=== PATIENT | male | born 1975 | race Caucasian/White ===

== ENCOUNTER 2018-02-22 02:10 | Emergency (ER) | payer OTHER ==
[~2018-02-22] VITALS: Ht 185.4 cm; Wt 127.3 kg
[~2018-02-22 02:10] MED LIST: CIPRO 500MG TA500 MG PO; FLOMAX0.4 MG PO; NO HOME MEDICATIONS; PERCOCET 325 MG1 TA2 PO; PHENERGAN 25 TA25 MG PO; PHENERGAN25 MG RC
[2018-02-22 02:16] VITALS: BP 192/90; TEMP 99
[2018-02-22] MEDS ORDERED: HCTZ12.5TAB (02:22)
[2018-02-22] MEDS ORDERED: ALEVE 220MG220 MG PO (02:22)
[2018-02-22] MEDS ORDERED: EXCEDRIN1 TAB PO (02:23)
[2018-02-22] MEDS ORDERED: ADVIL200 MG PO (02:24)
[2018-02-22] MEDS ORDERED: AMOXICILLIN 50500 MG PO (02:43)
[2018-02-22] MEDS ORDERED: NORCO 325 MG-7.1 TAB PO (02:43)
[2018-02-22 02:55] VITALS: PULSE 57
== END 2018-02-22 02:55 | disposition home or self-care (01) ==
LOC: COL.ER 02:10
DX: K02.9 Dental caries, unspecified (principal); I10 Essential (primary) hypertension; Z98.818 Other dental procedure status

== ENCOUNTER 2022-12-26 07:18 | Day surgery (SDC) | payer OTHER ==
[~2022-12-26] VITALS: Ht 188 cm; Wt 147.2 kg
[~2022-12-26 07:18] MED LIST changes: +ADVIL200 MG PO; +ALEVE 220MG220 MG PO; +AMOXICILLIN 50500 MG PO; +EXCEDRIN1 TAB PO; +HCTZ12.5TAB; +NORCO 325 MG-7.1 TAB PO
[2022-12-26] MEDS ORDERED: LIPITOR 40MG TA40 MG PO (07:38)
[2022-12-26] MEDS ORDERED: NORVASC 5MG5 MG/TAB PO (07:38)
[2022-12-26 07:43] VITALS: BP 131/85; PULSE 66; TEMP 97.3
[2022-12-26 09:30] VITALS: BP 103/68; PULSE 57; TEMP 97.2
[2022-12-26 09:45] VITALS: BP 113/66; PULSE 55
[2022-12-26 10:00] VITALS: BP 105/70; PULSE 57
--- NOTE | 2022-12-26 10:15 | NUR ---
0930 RECEIVED POST PROCEDURE REPORT FROM REYNALDO MURRAY. PT IS ALERT AND ABLE TO AMBULATE FROM CART TO RECLINER. DR. PORTER IN TO UPDATE PT AND HIS ON PROCEDURE RESULTS AND FOLOW UP PLAN. 0977 PT GIVEN JUICE AND MUFFINS. TOLERATED PO. 1007 PT EDUCATION AND REVIEW OF DR. PORTER'S INSTRUCTIONS PROVIDED TO PT AND HIS . QUESTIONS INVITED AND ANSWERED. PT AND VERBALIZED UNDERSTANDING. 1015 PT TO LOBBY VIA WHEEL CHAIR FOR RIDE HOME WITH HIS VIA POV.
== END 2022-12-26 10:15 | disposition home or self-care (01) ==
LOC: SDCO 07:18
DX: Z12.11 Encounter for screening for malignant neoplasm of colon (principal); I10 Essential (primary) hypertension; E66.01 Morbid (severe) obesity due to excess calories; Z87.891 Personal history of nicotine dependence; Z68.41 Body mass index [BMI] 40.0-44.9, adult
CPT/HCPCS: J2704; J3010